=== PATIENT | female | born 1945 | race Caucasian/White ===

== ENCOUNTER 2016-10-28 17:01 | Emergency (ER) | payer MEDICARE, OTHER ==
[2016-10-28 17:54] LABS: CHLORIDE,CL 101 mmol/L (98-115); SODIUM,NA 133 mmol/L (136-145)
--- NOTE | 2016-10-28 18:09 | EDM.PDOC ---
ED HPI GENERAL MEDICAL PROBLEM - General Chief Complaint: General Stated Complaint: HIGH POTASSIUM?? Time Seen by Provider: 10/28/16 17:26 Source of Information: Reports: Patient History Limitations: Reports: No Limitations - Related Data Allergies Allergy/AdvReac Type Severity Reaction Status Date / Time No Known Allergies Allergy Verified 10/28/16 17:15 Home Meds: Home Meds Aspirin [Ecotrin] 325 mg PO DAILY 10/28/16 [History] Calcium Carbonate/Vitamin D3 [Calcium 600 + Vit D Tablet] 2 each PO DAILY [History] Carvedilol [Carvedilol] 25 mg PO BID 10/28/16 [History] Cholecalciferol (Vitamin D3) [Vitamin D3] 2,000 unit PO DAILY 10/28/16 [History] Cyanocobalamin (Vitamin B-12) [Vitamin B-12] 500 mcg PO 10/28/16 [History] Fish Oil/Borage/Flax/Om3,6,9#1 [Ulysses 3-6-9 Complex Softgel] 2 each PO DAILY [History] Insulin Aspart [NovoLOG] 2 units SUBCUT ASDIRECTED 10/28/16 [History] Insulin Detemir [Levemir Flextouch] 25 units SUBCUT BEDTIME 10/28/16 [History] Liraglutide [Victoza] 1.2 mg SUBCUT BEDTIME 10/28/16 [History] Lutein/Minerals/Vit A,C & E [I-Radha] 1 each PO DAILY 10/28/16 [History] Multivitamin [Daily Radha] 1 each PO DAILY 10/28/16 [History] Simvastatin [Simvastatin] 20 mg PO BEDTIME 10/28/16 [History] Terazosin [Hytrin] 6 mg PO BEDTIME 10/28/16 [History] amLODIPine Besylate [Amlodipine Besylate] 10 mg PO DAILY 10/28/16 [History] hydrALAZINE [Apresoline] 50 mg PO TID 10/28/16 [History] ED ROS GENERAL - Review of Systems Review Of Systems: ROS reveals no pertinent complaints other than HPI. Constitutional: Reports: No Symptoms HEENT: Reports: No Symptoms Respiratory: Reports: No Symptoms Cardiovascular: Reports: No Symptoms Endocrine: Reports: No Symptoms GI/Abdominal: Reports: No Symptoms : Reports: No Symptoms Musculoskeletal: Reports: No Symptoms Skin: Reports: No Symptoms Neurological: Reports: No Symptoms Psychiatric: Reports: No Symptoms Hematologic/Lymphatic: Reports: No Symptoms Immunologic: Reports: No Symptoms ED EXAM, GENERAL - Physical Exam Exam: See Below Exam Limited By: No Limitations General Appearance: Alert, WD/WN, No Apparent Distress Throat/Mouth: Normal Inspection Respiratory/Chest: No Respiratory Distress, Lungs Clear, Normal Breath Sounds, Chest Non-Tender Cardiovascular: Regular Rate, Rhythm, No Murmur GI/Abdominal: Normal Bowel Sounds, Soft, Non-Tender Back Exam: Normal Inspection. No: CVA Tenderness (L), CVA Tenderness (R) Extremities: Normal Inspection Neurological: Alert, Oriented, Normal Cognition Psychiatric: Normal Affect, Normal Mood Skin Exam: Warm, Dry, Intact, Normal Color, No Rash Lymphatic: No Adenopathy Course - Orders/Labs/Meds Orders: Active Orders 24 hr Category Date Time Status BMP [BASIC METABOLIC PANEL,BMP] [CHEM] Stat Lab 10/28/16 17:20 Received INR,PT,PROTHROMBIN TIME [COAG] Stat Lab 10/28/16 17:20 Stop Req PTT,PARTIAL THROMBOPLSTIN TIME [COAG] Stat Lab 10/28/16 17:20 Stop Req Labs: Laboratory Tests 10/28/16 Range/Units 17:20 WBC 5.8 (5.0-10.0) 10^3/uL RBC 3.78 L (3.80-5.50) 10^6/uL Hgb 11.3 L (12.0-16.0) g/dL Hct 32.6 L (37.0-47.0) % MCV 86.3 (82.0-92.0) fL MCH 29.9 (27.0-31.0) pg MCHC 34.7 (32.0-36.0) g/dL RDW 12.9 (11.5-14.5) % Plt Count 177 (150-300) 10^3/uL MPV 8.1 (7.4-10.4) fL Neut % (Auto) 52.6 (50.0-70.0) % Lymph % (Auto) 34.6 (20.0-40.0) % Cross % (Auto) 7.8 (2.0-8.0) % Eos % (Auto) 4.0 H (1.0-3.0) % Baso % (Auto) 1.0 (0.0-1.0) % Neut # (Auto) 3.0 (2.5-7.0) 10^3/uL Lymph # (Auto) 2.0 (1.0-4.0) 10^3/uL Cross # (Auto) 0.5 (0.1-0.8) 10^3/uL Eos # (Auto) 0.2 (0.1-0.3) 10^3/uL Baso # (Auto) 0.1 (0.0-0.1) 10^3/uL - Re-Assessments/Exams Free Text/Narrative Re-Assessment/Exam: 10/28/16 18:10 PT AFEBRILE, NONTOXIC APPEARING, VSS, K+ RESULTED 5.0. WILL HAVE HER F/U WITH PCP Departure - Departure Time of Disposition: 18:15 Disposition: Home, Self-Care 01 Condition: Good Clinical Impression: Renal insufficiency syndrome - Discharge Information Instructions: Hyperkalemia, [id number], Hypertension Additional Instructions: FOLLOW UP WITH YOUR PCP IN NEXT 2-3 DAYS - My Orders Last 24 Hours: My Active Orders 10/28/16 17:20 BMP [BASIC METABOLIC PANEL,BMP] [CHEM] Stat INR,PT,PROTHROMBIN TIME [COAG] Stat PTT,PARTIAL THROMBOPLSTIN TIME [COAG] Stat - Assessment/Plan Last 24 Hours: My Active Orders 10/28/16 17:20 BMP [BASIC METABOLIC PANEL,BMP] [CHEM] Stat INR,PT,PROTHROMBIN TIME [COAG] Stat PTT,PARTIAL THROMBOPLSTIN TIME [COAG] Stat Assessment:: LAB VALUE CHECK Plan: F/U WITH PCP
[2016-10-28 18:17] VITALS: BP 178/70
== END 2016-10-28 18:40 | disposition home or self-care (01) ==
LOC: KA.ED 17:01
DX: N28.9 Disorder of kidney and ureter, unspecified (principal); Z79.899 Other long term (current) drug therapy; Z79.82 Long term (current) use of aspirin; Z79.4 Long term (current) use of insulin
CPT/HCPCS: 36415; 80048; 99283; 99284